=== PATIENT | female | born 1970 | race Caucasian/White ===

== ENCOUNTER 2018-05-28 16:19 | Outpatient (CLI) | payer OTHER | END 2018-05-28 20:48 | disposition home or self-care (01) | LOC: SMA 16:19 | PROVIDERS: ATTEND Family Medicine | DX: Z12.31 Encounter for screening mammogram for malignant neoplasm of breast (principal); R92.1 Mammographic calcification found on diagnostic imaging of breast | CPT/HCPCS: 77067 ==

== ENCOUNTER 2018-06-10 11:33 | Outpatient (CLI) | payer OTHER | END 2018-06-10 13:00 | disposition home or self-care (01) | LOC: SMA 11:33 | PROVIDERS: ATTEND Family Medicine | DX: R92.8 Other abnormal and inconclusive findings on diagnostic imaging of breast (principal); R92.1 Mammographic calcification found on diagnostic imaging of breast | CPT/HCPCS: 77065 ==